=== PATIENT | female | born 1930 | race Caucasian/White ===

== ENCOUNTER 2019-09-04 07:11 | Emergency (ER) | payer OTHER ==
[2019-09-04 07:41] LABS: Basophils % 0.9 % (0-1.3); Hematocrit 33.6 % (36.0-45.0); Lymphocytes % 13.1 % (15.3-44.8); MPV 8.3 fL (7.6-11.3); Protime INR 1.06; RBC Red Blood Cell Count 3.98 M/uL (3.86-4.86)
[2019-09-04 07:48] LABS: Potassium 3.5 mmol/L (3.5-5.1)
[2019-09-04] MEDS ORDERED: FENTANYL CITR 100 MCG/2 ML ONE (08:03)
--- NOTE | 2019-09-04 08:18 | RAD REPORT ---
EXAM DESCRIPTION: RAD - Pelvis - 09/04/2019 7:51 am CLINICAL HISTORY: hip pain status post fall FINDINGS: A subcapital left femoral fracture is present with marked displacement of fracture fragmen ts. No dislocation Osteoporosis
--- NOTE | 2019-09-04 08:19 | RAD REPORT ---
EXAM DESCRIPTION: RAD - Hip Left 2 View - 09/04/2019 7:51 am CLINICAL HISTORY: Left hip pain status post injury FINDINGS: A subcapital left femoral fracture is present with marked displacement of fracture fragmen ts. No dislocation Osteoporosis
--- NOTE | 2019-09-04 09:45 | ER ---
Nurse's Notes [facility] Name: Ivis Florez Age: 88 yrs Sex: Female : 1930 Arrival Date: 09/04/2019 Time: 07:11 Bed 6 Private MD: Diagnosis: Closed Left hip femoral hip fracture Presentation: 09/04 07:04 Presenting complaint: EMS states: Pt was ambulating to the bathroom and lost her sv balance and is now c/o left hip pain. Family had gotten her up from the ground and placed her in a recliner. BP 145/78 HR-72 91% RA placed on O2 \T\ 2L per NC O2 sat up to 96%. ETCO2-32. Care prior to arrival: Medication(s) given: Fentanyl 50 mcg IVP IV initiated. 20 GA, in the right antecubital area, Glucose check: 127 Oxygen administered. via nasal cannula. Mechanism of Injury: Fall from standing position. Trauma event details: Injury occurred in the [facility], Injury occurred: at home. Injury occurred at: 05:45. 07:04 Acuity: TAMMI 2 sv 07:04 Method Of Arrival: EMS: [facility] sv 07:24 Transition of care: patient was not received from another setting of care. Onset of sv symptoms was September 04, 2019 at 05:45. Risk Assessment: Do you want to hurt yourself or someone else? Patient reports no desire to harm self or others. Initial Sepsis Screen: Does the patient meet any 2 criteria? No. Patient's initial sepsis screen is negative. Does the patient have a suspected source of infection? No. Patient's initial sepsis screen is negative. Trauma Activation: Alert Physician: ED Physician; Name: Dr Logan; Notified At: 07:02; Arrived At: 07:10 Physician: General Surgeon; Name: ; Notified At: 07:02; Arrived At: Physician: Radiology; Name: Jill Brown Harlan-xray; Notified At: 07:02; Arrived At: Physician: Respiratory; Name: ; Notified At: 07:02; Arrived At: Physician: Lab; Name: ; Notified At: 07:02; Arrived At: Historical: - Allergies: 07:18 PENICILLINS; sv 07:18 Sulfa (Sulfonamide Antibiotics); sv - Home Meds: 07:18 isosorbide mononitrate 30 mg Oral Tb24 1 tab once daily [Active]; Plavix 75 mg Oral tab sv 1 tab once daily [Active]; metformin 500 mg Oral tab [Active]; atorvastatin 10 mg oral tab [Active]; Cartia XT 180 mg Oral cp24 [Active]; levothyroxine 100 mcg tab [Active]; donepezil 10 mg oral tab [Active]; memantine 10 mg oral tab [Active]; cetirizine 10 mg oral tab [Active]; Citracal + D3 (calcium phos) 250 mg calcium- 250 unit oral chew [Active]; Vitamin D3 oral oral [Active]; Vitamin C 1,000 mg Oral tab [Active]; - PMHx: 07:18 Diabetes - NIDDM; Hypertension; Dementia; sv - Immunization history:: Adult Immunizations up to date. - Social history:: Smoking status: Patient/guardian denies using tobacco. - Ebola Screening: : No symptoms or risks identified at this time. Screenin:26 Nutritional screening: No deficits noted. Tuberculosis screening: No symptoms or risk sv factors identified. Fall Risk Fall in past 12 months (25 points). Secondary diagnosis (15 points) dementia, IV access (20 points). Ambulatory Aid- None/Bed Rest/Nurse Assist (0 pts). Gait- Normal/Bed Rest/Wheelchair (0 pts) Mental Status- Oriented to own ability (0 pts). Total Lanza Fall Scale indicates High Risk Score (45 or more points). Fall prevention measures have been instituted. Side Rails Up X 2 Placed Close to Nursing Station Frequent Obs/Assessments Occuring As available patient and family educated on Fall Prevention Program and Strategies. 10:26 Abuse screen: Denies threats or abuse. Denies injuries from another. sv Primary Survey: 07:08 NO uncontrolled hemorrhage observed. A: The patient is alert. Airway: patent, Oxygen sv via nasal cannula at 2 liters per minute. Oral cavity: clear, Trachea midline. Breathing/Chest: Respiratory pattern: regular, Respiratory effort: spontaneous, unlabored, Chest inspection: symmetrical rise and fall of the chest. Circulation: Pulses: palpable right dorsalis pedis artery and left dorsalis pedis artery. Skin color: pink, Skin temperature: warm, dry. Disability Alert. Exposure/Environment: All clothing and personal items were removed. Forensic evidence collection is not deemed to be indicated at this time. Items placed in patient belonging bag. There is no evidence of uncontrolled external bleeding. No obvious injuries are noted at this time. A warming method has been applied: A warm blanket has been provided to the patient. 07:44 Reassessment Airway Airway Patent Oxygen No O2 Oral cavity Clear Trachea Midline sv Breathing/Chest Respiratory pattern Regular Respiratory effort Spontaneous Unlabored Chest inspection Symmetrical Circulation Pulses Palpable Color [place] Temperature Warm Dry Disability Alert. Secondary Survey: 07:08 HEENT: No deficits noted. Gastrointestinal: No deficits noted. : No deficits noted. sv No signs and/or symptoms were reported regarding the genitourinary system. Musculoskeletal: Range of motion: limited in left hip. Assessment: 07:34 Reassessment: Xray at the bedside. sv 08:00 Reassessment: Dr Logan at bedside speaking with pt and family regarding xray results sv and the need to transfer. 08:03 Reassessment: Patient appears in no apparent distress at this time. No changes from sv previously documented assessment. Patient and/or family updated on plan of care and expected duration. Pain level reassessed. Patient is alert, oriented x 3, equal unlabored respirations, skin warm/dry/pink. 09:15 Reassessment: Patient appears in no apparent distress at this time. Patient and/or sv family updated on plan of care and expected duration. Pain level reassessed. Patient is alert, oriented x 3, equal unlabored respirations, skin warm/dry/pink. Patient states symptoms have improved. 10:03 Reassessment: Report given to Lee COLEY at [facility]. 10:15 Reassessment: Patient appears in no apparent distress at this time. Patient and/or sv family updated on plan of care and expected duration. Pain level reassessed. Patient is alert, oriented x 3, equal unlabored respirations, skin warm/dry/pink. Vital Signs: 07:08 BP 145 / 86; Pulse 65; Resp 16; Temp 97.7; Pulse Ox 93% on R/A; Weight 79.38 kg; Height sv 5 ft. 8 in. (172.72 cm); Pain 5/10; 07:44 BP 129 / 77; Pulse 64; Resp 16; Temp 98; Pulse Ox 100% ; sv 08:45 BP 138 / 80; Pulse 70; Resp 16; Pulse Ox 99% ; sv 09:30 BP 136 / 75; Pulse 68; Resp 16; Pulse Ox 98% on 2 lpm NC; sv 10:15 BP 147 / 88; Pulse 75; Resp 17; Pulse Ox 99% on 2 lpm NC; sv 11:10 BP 140 / 79; Pulse 77; Resp 15; Temp 98; Pulse Ox 99% on 2 lpm NC; sv 07:08 Body Mass Index 26.61 (79.38 kg, 172.72 cm) sv 07:08 Placed on O2 \T\ 2L per NC, O2 sat up to 96%. sv Jamie Coma Score: 07:08 Eye Response: spontaneous(4). Verbal Response: oriented(5). Motor Response: obeys sv commands(6). Total: 15. 07:44 Eye Response: spontaneous(4). Verbal Response: oriented(5). Motor Response: obeys sv commands(6). Total: 15. 11:10 Eye Response: spontaneous(4). Verbal Response: oriented(5). Motor Response: obeys sv commands(6). Total: 15. Trauma Score (Adult): 07:08 Eye Response: spontaneous(1); Verbal Response: oriented(1); Motor Response: obeys sv commands(2); Systolic BP: > 89 mm Hg(4); Respiratory Rate: 10 to 29 per min(4); [place] Score: 15; Trauma Score: 12 07:44 Eye Response: spontaneous(1); Verbal Response: oriented(1); Motor Response: obeys sv commands(2); Systolic BP: > 89 mm Hg(4); Respiratory Rate: 10 to 29 per min(4); [place] Score: 15; Trauma Score: 12 11:10 Eye Response: spontaneous(1); Verbal Response: oriented(1); Motor Response: obeys sv commands(2); Systolic BP: > 89 mm Hg(4); Respiratory Rate: 10 to 29 per min(4); [place] Score: 15; Trauma Score: 12 ED Course: 07:10 Oxygen administration via nasal cannula. sv 07:11 Patient arrived in ED. sv 07:11 Erin Pineda, BRIJESH is Primary Nurse. sv 07:12 Skyler Logan MD is Attending Physician. kdr 07:14 Triage completed. sv 07:15 Thermoregulation: warm blanket given to patient. sv 07:15 Patient has correct armband on for positive identification. Bed in low position. Call sv light in reach. Side rails up X2. Pulse ox on. NIBP on. Door closed. Head of bed elevated. 07:15 Arm band placed on. sv 07:22 Initial lab(s) drawn, by ED staff, sent to lab. sv 07:30 Warm blanket given. sv 07:34 PT-INR Sent. sv 07:34 Chem 7 Sent. sv 07:34 CBC with Diff Sent. sv 07:44 X-ray(s) taken. sv 07:50 X-ray completed. Portable x-ray completed in exam room. Patient tolerated procedure mh1 well. 07:50 Parnell cath inserted, using sterile technique, 16 Fr., by mt, balloon inflated, to gravity drainage, returned clear yellow urine. Patient tolerated well. 08:06 initiated a transfer with Milly from the [facility]. 08:[address] Lema the orthopedic surgeon ground operations supervisor for [facility] with Dr. dafne Logan for patient transfer consultation. 09:25 connected the hospitalist ground operations supervisor for [facility] with Dr. Logan for patient transfer consultation. 09:28 administrative approval given by Milly Pringle RN/ patient has been accepted to [facility] by Dr. Salguero. patient is going to room 421./ report to be called to [phone]. 10:14 transfer transportation to receiving facility. sv 10:19 Warm blanket given. sv 10:38 Pelvis XRAY Sent. sv 10:38 Hip Left 2 View XRAY Sent. sv 11:11 No provider procedures requiring assistance completed. Patient transferred, IV remains sv in place. intact. Administered Medications: 08:03 Drug: fentaNYL (PF) 50 mcg {Note: RASS1.} Route: IVP; Infused Over: 3 mins; Site: right sv antecubital; 09:00 Follow up: Response: No adverse reaction; Pain is decreased; RASS: Alert and Calm (0) sv Intake: 07:08 PO: 0ml; Total: 0ml. sv 07:44 PO: 0ml; Total: 0ml. sv Output: 07:08 Urine: 0ml; Total: 0ml. sv 07:44 Urine: 0ml; Total: 0ml. sv 08:07 Urine: 300ml (Parnell); Total: 300ml. sv 11:10 Urine: 300ml (Parnell); Total: 600ml. sv Outcome: 09:43 ER care complete, transfer ordered by . kdr 11:09 Transferred by ground EMS to [facility], Transfer form completed. sv X-rays sent w/ patient. Note: Pt going to [facility] in [place], [place], report given to [facility]. 11:09 Condition: stable 11:09 Instructed on the need for transfer. 11:11 Patient's length of stay in the Emergency Department was greater than 2 hours. d/t pt sv being transferred to [place], [place] and waiting on EMSPatient's length of stay extended due to 11:11 Patient left the ED. sv Signatures: Erin Pineda, RN RN sv Skyler Logan MD MD [facility] Alycia Alvarado [facility] Regina Mcgregor Corrections: (The following items were deleted from the chart) 08:07 08:03 fentaNYL (PF) 50 mcg IVP in right antecubital over 3 mins sv sv
--- NOTE | 2019-09-04 09:45 | EDPHYS ---
Physician Documentation [facility] Name: Ivis Florez Age: 88 yrs Sex: Female : 1930 Arrival Date: 09/04/2019 Time: 07:11 Bed 6 Private MD: ED Physician Skyler Logan HPI: 09/04 07:14 This 88 yrs old Female presents to ER via EMS with complaints of Fall Injury, kdr Hip Pain. 07:14 Details of fall: The patient fell from an upright position, while walking. Onset: The kdr symptoms/episode began/occurred suddenly, just prior to arrival. Associated injuries: The patient sustained left hip, decreased range of motion, painful injury. Severity of symptoms: At their worst the symptoms were mild, moderate, just prior to arrival, in the emergency department the symptoms are unchanged. The patient has not experienced similar symptoms in the past. The patient has not recently seen a physician. Historical: - Allergies: 07:18 PENICILLINS; sv 07:18 Sulfa (Sulfonamide Antibiotics); sv - Home Meds: 07:18 isosorbide mononitrate 30 mg Oral Tb24 1 tab once daily [Active]; Plavix 75 mg Oral tab sv 1 tab once daily [Active]; metformin 500 mg Oral tab [Active]; atorvastatin 10 mg oral tab [Active]; Cartia XT 180 mg Oral cp24 [Active]; levothyroxine 100 mcg tab [Active]; donepezil 10 mg oral tab [Active]; memantine 10 mg oral tab [Active]; cetirizine 10 mg oral tab [Active]; Citracal + D3 (calcium phos) 250 mg calcium- 250 unit oral chew [Active]; Vitamin D3 oral oral [Active]; Vitamin C 1,000 mg Oral tab [Active]; - PMHx: 07:18 Diabetes - NIDDM; Hypertension; Dementia; sv - Immunization history:: Adult Immunizations up to date. - Social history:: Smoking status: Patient/guardian denies using tobacco. - Ebola Screening: : No symptoms or risks identified at this time. ROS: 07:14 Constitutional: Negative for fever, chills, and weight loss, Eyes: Negative for injury, kdr pain, redness, and discharge, ENT: Negative for injury, pain, and discharge, Neck: Negative for injury, pain, and swelling, Cardiovascular: Negative for chest pain, palpitations, and edema, Respiratory: Negative for shortness of breath, cough, wheezing, and pleuritic chest pain, Abdomen/GI: Negative for abdominal pain, nausea, vomiting, diarrhea, and constipation, Back: Negative for injury and pain, : Negative for injury, bleeding, discharge, and swelling, Skin: Negative for injury, rash, and discoloration, Neuro: Negative for headache, weakness, numbness, tingling, and seizure activity. Psych: Negative for depression, anxiety, suicide ideation, homicidal ideation, and hallucinations, Allergy/Immunology: Negative for hives, rash, and allergies, Endocrine: Negative for neck swelling, polydipsia, polyuria, polyphagia, and marked weight changes, Hematologic/Lymphatic: Negative for swollen nodes, abnormal bleeding, and unusual bruising. 07:14 MS/extremity: Positive for injury or acute deformity, decreased range of motion, pain, tenderness, of the left hip, Negative for acute changes, abrasion. Exam: 07:14 Constitutional: This is a well developed, well nourished patient who is awake, alert, kdr and in no acute distress. Head/Face: Normocephalic, atraumatic. Eyes: Pupils equal round and reactive to light, extra-ocular motions intact. Lids and lashes normal. Conjunctiva and sclera are non-icteric and not injected. Cornea within normal limits. Periorbital areas with no swelling, redness, or edema. Neck: Trachea midline, no thyromegaly or masses palpated, and no cervical lymphadenopathy. Supple, full range of motion without nuchal rigidity, or vertebral point tenderness. No Meningismus. Chest/axilla: Normal chest wall appearance and motion. Nontender with no deformity. No lesions are appreciated. Cardiovascular: Regular rate and rhythm with a normal S1 and S2. No gallops, murmurs, or rubs. Normal PMI, no JVD. No pulse deficits. Respiratory: Lungs have equal breath sounds bilaterally, clear to auscultation and percussion. No rales, rhonchi or wheezes noted. No increased work of breathing, no retractions or nasal flaring. Abdomen/GI: Soft, non-tender, with normal bowel sounds. No distension or tympany. No guarding or rebound. No evidence of tenderness throughout. Back: No spinal tenderness. No costovertebral tenderness. Full range of motion. Skin: Warm, dry with normal turgor. Normal color with no rashes, no lesions, and no evidence of cellulitis. Neuro: Awake and alert, GCS 15, oriented to person, place, time, and situation. Cranial nerves II-XII grossly intact. Motor strength 5/5 in all extremities. Sensory grossly intact. Cerebellar exam normal. Normal gait. Psych: Awake, alert, with orientation to person, place and time. Behavior, mood, and affect are within normal limits. 07:14 Musculoskeletal/extremity: Extremities: grossly normal except: noted in the left hip: decreased ROM, pain, swelling, tenderness, There is slight shortening of the left leg. Vital Signs: 07:08 BP 145 / 86; Pulse 65; Resp 16; Temp 97.7; Pulse Ox 93% on R/A; Weight 79.38 kg; Height sv 5 ft. 8 in. (172.72 cm); Pain 5/10; 07:44 BP 129 / 77; Pulse 64; Resp 16; Temp 98; Pulse Ox 100% ; sv 08:45 BP 138 / 80; Pulse 70; Resp 16; Pulse Ox 99% ; sv 09:30 BP 136 / 75; Pulse 68; Resp 16; Pulse Ox 98% on 2 lpm NC; sv 10:15 BP 147 / 88; Pulse 75; Resp 17; Pulse Ox 99% on 2 lpm NC; sv 11:10 BP 140 / 79; Pulse 77; Resp 15; Temp 98; Pulse Ox 99% on 2 lpm NC; sv 07:08 Body Mass Index 26.61 (79.38 kg, 172.72 cm) sv 07:08 Placed on O2 \T\ 2L per NC, O2 sat up to 96%. sv [place] Coma Score: 07:08 Eye Response: spontaneous(4). Verbal Response: oriented(5). Motor Response: obeys sv commands(6). Total: 15. 07:44 Eye Response: spontaneous(4). Verbal Response: oriented(5). Motor Response: obeys sv commands(6). Total: 15. 11:10 Eye Response: spontaneous(4). Verbal Response: oriented(5). Motor Response: obeys sv commands(6). Total: 15. Trauma Score (Adult): 07:08 Eye Response: spontaneous(1); Verbal Response: oriented(1); Motor Response: obeys sv commands(2); Systolic BP: > 89 mm Hg(4); Respiratory Rate: 10 to 29 per min(4); [place] Score: 15; Trauma Score: 12 07:44 Eye Response: spontaneous(1); Verbal Response: oriented(1); Motor Response: obeys sv commands(2); Systolic BP: > 89 mm Hg(4); Respiratory Rate: 10 to 29 per min(4); [place] Score: 15; Trauma Score: 12 11:10 Eye Response: spontaneous(1); Verbal Response: oriented(1); Motor Response: obeys sv commands(2); Systolic BP: > 89 mm Hg(4); Respiratory Rate: 10 to 29 per min(4); Jamie Score: 15; Trauma Score: 12 MDM: 07:14 Data reviewed: vital signs, nurses notes, lab test result(s), radiologic studies. kdr Counseling: I had a detailed discussion with the patient and/or guardian regarding: the historical points, exam findings, and any diagnostic results supporting the discharge/admit diagnosis, lab results, radiology results. 08:28 ED course: D/w Dr. Lema/ortho at [place]. Agreed to consult on an admission to [facility] Hospitalist service. 08:59 ED course: The sophia net remains stable in the ED. kdr 09:43 Patient medically screened. [facility] 09/04 07:14 Order name: CBC with Diff [facility] 09/04 07:14 Order name: Chem 7 [facility] 09/04 07:14 Order name: PT-INR [facility] 09/04 07:43 Order name: Protime (+INR); Complete Time: 08:30 EDMS 09/04 07:43 Order name: CBC with Automated Diff; Complete Time: 08:30 EDMS 09/04 07:48 Order name: Basic Metabolic Panel; Complete Time: 08:30 EDMS 09/04 07:14 Order name: Hip Left 2 View XRAY [facility] 09/04 07:14 Order name: Pelvis XRAY [facility] 09/04 08:19 Order name: RAD; Complete Time: 08:30 EDMS 09/04 08:19 Order name: RAD; Complete Time: 08:30 EDMS Administered Medications: 08:03 Drug: fentaNYL (PF) 50 mcg {Note: RASS1.} Route: IVP; Infused Over: 3 mins; Site: right sv antecubital; 09:00 Follow up: Response: No adverse reaction; Pain is decreased; RASS: Alert and Calm (0) sv Disposition: 09/04/19 09:43 Transfer ordered to Other Acute Care Facility. Diagnosis is Closed Left hip femoral hip fracture. - Reason for transfer: Higher level of care. - Accepting physician is Dr. Salguero/[place]. - Condition is Fair. - Problem is new. - Symptoms have improved. Signatures: Dispatcher [employer] Erin Ovalle RN RN sv Skyler Logan MD MD kdr Corrections: (The following items were deleted from the chart) 11: 09:43 09/04/2019 09:43 Transfer ordered to Other Acute Care Facility. Diagnosis is sv Closed Left hip femoral hip fracture. Reason for transfer: Higher level of care. Accepting physician is Dr. Pelayo. Condition is Fair. Problem is new. Symptoms have improved. kdr
[2019-09-04 17:54] VITALS: TEMP 98
[2019-09-04 17:58] VITALS: O2SAT 99
[2019-09-04 17:59] VITALS: BP 140/79
== END 2019-09-04 11:11 ==
LOC: ER 07:11
DX: S72.92XA Unspecified fracture of left femur, initial encounter for closed fracture (principal); W19.XXXA Unspecified fall, initial encounter; Y93.01 Activity, walking, marching and hiking; Y92.9 Unspecified place or not applicable; I10 Essential (primary) hypertension; F03.90 Unspecified dementia, unspecified severity, without behavioral disturbance, psychotic disturbance, mood disturbance, and anxiety; E11.9 Type 2 diabetes mellitus without complications; Z79.01 Long term (current) use of anticoagulants; Z88.0 Allergy status to penicillin; Z88.2 Allergy status to sulfonamides
CPT/HCPCS: 85025; 80048; 36415; 85610; 72170; 73502; 51702; 96374; 99285; J3010